=== PATIENT | female | born 1940 | race Two or more races ===

== ENCOUNTER 2017-08-28 10:10 | Outpatient (CLI) | payer OTHER | END 2017-08-28 10:18 | disposition home or self-care (01) | LOC: MAMO-SONO 10:10 | DX: Z12.31 Encounter for screening mammogram for malignant neoplasm of breast (principal); Z87.898 Personal history of other specified conditions; N62 Hypertrophy of breast ==

== ENCOUNTER 2018-08-10 12:39 | Outpatient (CLI) | payer OTHER | END 2018-08-10 13:07 | disposition home or self-care (01) | LOC: TOM 12:39 | DX: G30.8 Other Alzheimer's disease (principal); R41.2 Retrograde amnesia ==

== ENCOUNTER 2020-06-12 15:38 | Outpatient (CLI) | payer OTHER | END 2020-06-12 15:46 | disposition home or self-care (01) | LOC: TOM 15:38 | PROVIDERS: ATTEND Psychiatry & Neurology Clinical Neurophysiology | DX: R51.9 Headache, unspecified (principal); Z85.038 Personal history of other malignant neoplasm of large intestine ==

== ENCOUNTER 2021-09-05 10:04 | Outpatient (CLI) | payer OTHER | END 2021-09-05 10:09 | disposition home or self-care (01) | LOC: LAB 10:04 | DX: R07.9 Chest pain, unspecified (principal); I10 Essential (primary) hypertension ==

== ENCOUNTER 2022-01-02 05:10 | Day surgery (SDC) | payer OTHER ==
[~2022-01-02] VITALS: Ht 157.5 cm; Wt 73.0 kg
[~2022-01-02 05:10] MED LIST: ACULAR LS5 ML OP; ARICEPT5 MG PO; AVAPRO75 MG PO; CLONAZEPAM0.5 MG PO; LUMIGAN2.5 M1 OP; SIMVASTATIN10 MG PO; ZOLOFT25 MG PO
[2022-01-02] MEDS ORDERED: ULTRACET PO (08:59)
== END 2022-01-02 11:00 | disposition home or self-care (01) ==
LOC: CIR.AMB 05:10
PROVIDERS: ATTEND Surgery
DX: R15.9 Full incontinence of feces (principal); Z86.010 Personal history of colon polyps; Z85.038 Personal history of other malignant neoplasm of large intestine; K57.30 Diverticulosis of large intestine without perforation or abscess without bleeding; I10 Essential (primary) hypertension; E03.9 Hypothyroidism, unspecified
CPT/HCPCS: 64581; 95971; C1778

== ENCOUNTER 2022-07-22 06:53 | Outpatient (CLI) | payer OTHER ==
[~2022-07-22 06:53] MED LIST changes: +ULTRACET PO
== END 2022-07-22 07:10 | disposition home or self-care (01) ==
LOC: MRI 06:53
PROVIDERS: ATTEND Neuromusculoskeletal Medicine & OMM
DX: I72.9 Aneurysm of unspecified site (principal); I65.1 Occlusion and stenosis of basilar artery; I65.09 Occlusion and stenosis of unspecified vertebral artery; I65.29 Occlusion and stenosis of unspecified carotid artery; Q28.2 Arteriovenous malformation of cerebral vessels
CPT/HCPCS: 70544; 70551

== ENCOUNTER 2022-12-23 09:50 | Outpatient (CLI) | payer OTHER | END 2022-12-23 10:00 | disposition home or self-care (01) | LOC: MRI 09:50 | PROVIDERS: ATTEND Neuromusculoskeletal Medicine & OMM | DX: M51.26 Other intervertebral disc displacement, lumbar region (principal); M51.36 Other intervertebral disc degeneration, lumbar region; M50.20 Other cervical disc displacement, unspecified cervical region; M50.30 Other cervical disc degeneration, unspecified cervical region | CPT/HCPCS: 72141; 72148 ==